=== PATIENT | female | born 1995 | race Caucasian/White ===

== ENCOUNTER 2021-07-21 10:30 | Emergency (ER) | payer BC, SELFPAY ==
[2021-07-21] VITALS (10 sets, daily range): BP systolic 111–144; BP diastolic 68–84; PULSE 68–96; RESP 14–18; TEMP 37.3; O2SAT 98–100
--- NOTE | 2021-07-21 10:45 | DI.RAD_ITS ---
Exam(s) XR SHOULDER LT COMPLETE 2+V EXAM: XR SHOULDER LT COMPLETE 2+V CLINICAL HISTORY: left shoulder pain. TECHNIQUE: 2D digital imaging was performed of the left shoulder. Three views were obtained. AP, G rashey and Y- views were obtained. COMPARISON: No exams were available for comparison FINDINGS: BONES: No acute fracture is present. No bony destructive lesion is seen. JOINTS: There is an anterior dislocation of the left shoulder. SOFT TISSUE: Normal. IMPRESSION: Left anterior shoulder dislocation. DATA REPOSITORY: RADIATION DOSE DELIVERED:
--- NOTE | 2021-07-21 10:47 | W.ED.GENAD ---
Discharge Plan Disposition Patient Disposition: HOME Condition: Stable Discharge Details Clinical Impression: Anterior dislocation of left shoulder Primary Care Provider: Charo Ha ED Provider: Pb Preston Discharge Instructions Instructions: Shoulder Dislocation (ED) Additional Instructions: follow up with orthopedics for pain you can take 1000mg tylenol and 600mg ibuprofen every 6 hours as needed for pain if you feel more ill, have severe worsening pain or difficulty breathing return to the emergency department Referrals: Genaro Mayers MD [ [facility] STAFF PHYSICIAN] - Medical Decision Making 26 yo female who states she has had numerous shoulder dislocations in the past, last being a few years ago comes in stating she has a left shoulder dislocation. She states her left hand was holding a rocking chair and she reached behind her with the right arm and felt a pop in the left shoulder. no falls or other trauma, had immediate pain in the left shoulder. Denies any pain other than the left shoulder and on exam does feel asymetric compared to the left, normal distal pulses and sensation. Will treat her pain and obtain xray xray confirms anterior shoulder dislocation and I was unable to reduce at bedside with just analgesia so will require sedation. Discussed with pt and she consents to having procedural sedation to reduce her shoulder. Dr. Mayers from ortho was able to reduce shoulder after 60mg of propofol. She was observed and is now having minimal pain in the shoulder, intact csmts and has sling applied. will d/c and have her f/u with ortho, return precautions given Differential Diagnosis Differential Diagnosis: left shoulder fracture/dislocation Imaging Data Radiologic Study: Attestation: I personally reviewed and interpreted this imaging study as follows: Imaging: X-Ray Radiologist's impression: IMPRESSION: Left anterior shoulder dislocation. Radiologic Study #2: Attestation: I personally reviewed and interpreted this imaging study as follows: Imaging: X-Ray My impression: reduced shoulder dislocation HPI General Mode of arrival: ambulatory. Date/Time Provider Initiated Documentation: 07/21/21 10:42. Limitations to Documentation: no limitations. Information obtained by: patient. History of Present Illness 26 year old F presents to the emergency department with the chief complaint of left shoulder pain, described as moderate and severe, Patient started experiencing this hour(s) (1) and it has been constant. No relieving factors improve symptom(s), No exacerbating factors reported . Patient notes no other symptoms.. Patient did receive the following treatments prior to arrival, none Related Data Allergies Allergy/AdvReac Type Severity Reaction Status Date / Time No Known Allergies Allergy Unverified 07/21/21 10:41 General Stated Complaint: Orthopedic TITO: 3 Review of Systems All systems reviewed & are unremarkable except as noted in HPI and below Constitutional Constitutional: Denies chills, Denies fever(s) and Denies weakness Cardiovascular Cardiovascular: Denies chest pain and Denies dyspnea Respiratory Respiratory: Denies cough and Denies dyspnea Gastrointestinal Gastrointestinal: Denies abdominal pain, Denies nausea and Denies vomiting Musculoskeletal Musculoskeletal: Denies joint swelling Neurologic Neurologic: Denies weakness Psychiatric Psychiatric: Denies depression PFSH Social History Smoking/Tobacco Use Status: Never Smoking risk assessment performed?: Yes Alcohol Intake: current Alcohol Intake frequency: a few times a month Drug use: Never Substance use type: does not use Do you feel safe at home: Yes Do you feel safe in your relationship?: Yes Exam Const General: other (in pain) Orientation: alert HENMT Head: normal to inspection Ears: external ears normal General nose exam: external nose normal Mouth: moist mucous membranes Eyes General: appearance normal, both eyes and all related structures Neck Neck: normal visual inspection Resp Effort & Inspection: normal respiratory effort and able to speak in complete sentences Cardio Rate: regular rate Skin General skin exam: no rashes or lesions noted Neuro General: patient alert and patient oriented x3 Extrem Right upper extremity: normal capillary refill Psych Mental Status: mental status grossly normal Course Vital Signs Vital signs: Vital Signs Temperature 37.3 C 07/21/21 10:36 Pulse 96 H 07/21/21 10:36 Respiratory Rate 18 07/21/21 10:36 Blood Pressure 144/84 H 07/21/21 10:36 Pulse Oximetry 98 07/21/21 10:36 Temperature 37.3 C 07/21/21 10:36 Temperature Source Temporal Artery Scan 07/21/21 10:36 Pulse 96 H 07/21/21 10:36 Respiratory Rate 18 07/21/21 10:36 Respiratory Effort Non-Labored 07/21/21 10:42 Blood Pressure 144/84 H 07/21/21 10:36 Blood Pressure Position Sitting 07/21/21 10:36 Pulse Oximetry 98 07/21/21 10:36 Oxygen Delivery Method Room Air 07/21/21 10:36 Oxygen Flow Rate 0 07/21/21 10:36 Pain Level 10 07/21/21 10:45 Procedures Procedural Sedation Indication: fracture/dislocation reduction ASA Class: I Time of Last PO Intake: 09:00 Preparation: human resources hr generalist applied, pulse oximeter, capnometry used, supplemental O2 applied and IV secured Fentanyl: IV Fentanyl dose (mcg): 50 Midazolam: IV IV Propofol dose (mg): 60 Patient Tolerated Procedure: well Complications: none
[2021-07-21] MEDS: HYDROmorphone 2 MG/ML VIAL 1 MG IVP (10:56)
[2021-07-21] MEDS: Ondansetron 4 MG/2 ML VIAL (11:08)
[2021-07-21] MEDS: Normal Saline 50 ML (11:08)
[2021-07-21] MEDS: fentaNYL 100 MCG/2 ML VIAL (11:44)
[2021-07-21 12:03] LABS: Source Nasal/Nares
[2021-07-21] MEDS: fentaNYL 100 MCG/2 ML VIAL 50 MCG IVP (12:06)
--- NOTE | 2021-07-21 12:15 | DI.RAD_ITS ---
Exam(s) XR SHOULDER LT COMPLETE 2+V EXAM: XR SHOULDER LT COMPLETE 2+V CLINICAL HISTORY: pain s/p reduction. TECHNIQUE: 2D digital imaging was performed of the left shoulder. Four views were obtained. AP, Gr ashey and Y views were obtained. COMPARISON: CR XR SHOULDER LT COMPLETE 2+V from 07/21/2021 FINDINGS: BONES: No acute fracture is present. No bony destructive lesion is seen. JOINTS: No dislocation present. SOFT TISSUE: Normal. IMPRESSION: There has been successful reduction of the left shoulder dislocation. No acute fracture or dislocati on is seen at this time. DATA REPOSITORY: RADIATION DOSE DELIVERED:
[2021-07-21] MEDS: Propofol 200 MG/20 ML VIAL 100 MG IVP (12:22)
--- NOTE | 2021-07-21 12:48 | OCONE_ITS ---
Date of service: 07/21/21 Time of Service: 12:30 History of Present Illness Narrative: 26-year-old female describes reaching behind her today at work [employer] with sudden onset left shoulder recurrent dislocation. History of prior dislocation since left shoulder arthroscopic stabilization done Dr. [facility] [place] [facility] about 10 years ago. History contralateral arthroscopic stabilization as well. Describes significant soreness muscle tension about the shoulder. Moderate numbness and tingling in the hand. None about the shoulder. Anxious. Eager for pain relief and reduction. Describes avoiding position of apprehension 9090 and significant external rotation. Consult Reason Left shoulder dislocation Assessment and Plan Assessment and plan (1) Recurrent dislocation of left shoulder: Status: Acute (2) Anterior dislocation of left shoulder: Status: Acute Assessment and plan: 26-year-old female with recurrent, second, left shoulder anterior dislocation after arthroscopic stabilization done at outside hospital approximately 10 years ago Discussed with patient. Recommend closed reduction in the emergency department, which was performed uneventfully under conscious sedation. Appropriate precautions and sling provided. Follow-up with Dr. Mayers at [facility] orthopedics or with her primary orthopedic surgeon/locally at [facility] per patient preference. All questions were answered Patient and friend agree and understand treatment plan Will call if any changes or concerns Qualifiers: Encounter type: initial encounter Qualified Code(s): S43.015A - Anterior dislocation of left humerus, initial encounter Review of Systems All systems reviewed & are unremarkable except as noted in HPI and below PFSH Social History Smoking/Tobacco Use Status: Never Smoking risk assessment performed?: Yes Alcohol Intake: current Alcohol Intake frequency: a few times a month Drug use: Never Substance use type: does not use Do you feel safe at home: Yes Do you feel safe in your relationship?: Yes Exam Narrative Exam Narrative: Anxious in emergency room stretcher. Prior two anterior and posterior arthroscopy portals well-healed. 2+ left radial pulse. Axillary nerve sensation intact. Minimal paresthesias left hand. Demonstrates active motor AIN, PIN, ulnar nerves Obvious shoulder anterior deformity with positive sulcus sign. Results Last Vital Signs Temp 99.1 F 07/21/21 10:36 Pulse 81 07/21/21 12:15 Resp 18 07/21/21 10:36 BP 115/69 07/21/21 12:15 Pulse Ox 100 07/21/21 12:20 Labs Labs: Laboratory Results - last 24 hr 07/21/21 12:00 COVID-19 Source Nasal/Nares Imaging Imaging Studies: X-rays show anterior glenohumeral shoulder dislocation with prior radiolucent glenoid anchors at least 3 anteriorly and inferiorly. No fracture appreciated. Procedures Orthopedic Joint Reduction Left shoulder: Time out performed: Yes Side: left Joint reduction location: shoulder Analgesia: procedural sedation Technique used: direct manipulation (Basilio technique ) Post-reduction neuro exam: intact Post-reduction vascular exam: intact Post-reduction x-ray obtained: Yes Post-reduction x-ray results: reduced Splint applied: Yes (Sling) Patient tolerated procedure: well Additional comments: Patient dramatically more comfortable post reduction. Unable to test stability due to guarding in external rotation and abduction external rotation. Neurovascularly intact distally with resolved hand paresthesias. Axillary nerve sensory intact. Postreduction x-rays confirm reduced glenohumeral joint. No loose body or fracture appreciated.
[2021-07-21 13:03] LABS: COVID-19 PCR Negative (Negative)
== END 2021-07-21 13:20 | disposition home or self-care (01) ==
PROVIDERS: Emergency Provider Emergency Medicine; PCP Nurse Practitioner Family
DX: S43.015A Anterior dislocation of left humerus, initial encounter (principal); X50.9XXA Other and unspecified overexertion or strenuous movements or postures, initial encounter; R20.2 Paresthesia of skin; Z20.822 Contact with and (suspected) exposure to COVID-19; Z01.818 Encounter for other preprocedural examination
CPT/HCPCS: 23650; 87635; 96374; 96375; 99285; 73030; 99283; J2405; J2704; J3010